=== PATIENT | male | born 1990 | race Caucasian/White ===

== ENCOUNTER 2024-11-22 12:14 | Outpatient (AMB) | payer OTHER, SELFPAY ==
--- NOTE | 2024-11-22 12:35 | MHC.OFFWIV ---
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 Patient Tobacco Use Status: Never used Tobacco Allergies No Known Allergies Allergy (Verified 11/22/24 12:42) Do you need a note to return to daycare/school/sports/work: No HPI HPI Comments History of Present Illness Details History - The patient is a 34-year-old male presenting with recurrent asthma exacerbations. - Symptoms began shortly after relocating to [place] from the [facility] one year ago. - He reports daily wheezing, primarily noted in the morning, improving as the day progresses. - Experiences mild dyspnea on exertion, with dry coughing but no nocturnal disturbances. - Suspects symptoms are exacerbated by local environmental allergens, given recent move to a high allergen area. - Past history of asthma treated with inhalers such as albuterol and Advair, discontinued due to side effects (thrush) over 15 years ago. - Current management with albuterol has been insufficient though inhaler may be old/; daily allergy medication offers partial relief. - Was unable to get an appointment with primary care physician for evaluation. Physical Exam General: Cooperative, healthy appearing, comfortable and no acute distress Orientation/consciousness: Patient oriented x3 Limitations: No limitations Head: Normal to inspection Ears: Hearing grossly normal bilaterally, external ears normal and TM's normal bilaterally Nose: Normal external nose present, Normal nares present and No nasal discharge present Face and sinus: Normal facial exam and Yes sinuses nontender Mouth: Normal oral and palatal mucosa present and moist mucous membranes Throat: Yes tonsils normal, Yes uvula midline. Posterior oropharynx erythema Eyes: Appearance normal, both eyes and all related structures Neck: Normal visual inspection Respiratory: Clear to auscultation bilaterally. Normal respiratory effort, able to speak in complete sentences, no respiratory distress, not tachypneic, no tripod positioning and no use of accessory muscles Cardiovascular: Regular rate and rhythm. Normal S1 and S2 Skin: No rashes or lesions noted Neuro: Patient oriented x3 Extremities: Normal to inspection and Yes no clubbing, cyanosis or edema PFSH Social History Patient Tobacco Use Status: Never used Tobacco Review of Systems Const All systems reviewed & are unremarkable except as noted in HPI and below Physical Exam Vital Signs: Last Vital Signs Pulse 66 11/22/24 12:37 BP 112/70 11/22/24 12:37 Pulse Ox 99 11/22/24 12:37 Oxygen Delivery Method Room Air 11/22/24 12:37 Assessment & Plan Assessment & Plan (1) Allergic rhinitis with mild asthma without status asthmaticus, with acute exacerbation: Code(s): J45.901 - Unspecified asthma with (acute) exacerbation Qualifiers: Asthma persistence: intermittent Qualified Code(s): J45.21 - Mild intermittent asthma with (acute) exacerbation Plan: VSS, pt well appearing and PE remarkable for cobblestoning. Management will focus on initiating an inhaled corticosteroid and long-acting beta-agonist combination therapy to address recurrent asthma exacerbations. Past treatment with just short-acting bronchodilators has been insufficient. Coordination with Dr. Armenta may be necessary for prior authorization of Advair or a similar medication. A new RX for a spacer and Albuterol has been sent for interim relief. Follow-up with the primary care provider will ensure ongoing control and adaptation of the regimen with possible pulmonary function testing. Environmental allergen control measures will be stressed as part of ongoing management, continuing daily allergy medication. Patient was informed and verbally consented to the use of an ambient scribe for clinic note documentation during this visit Medications: New fluticasone propion-salmeterol 45-21 mcg/actuation (Advair HFA) 2 puffs inhalation Q12H 12 grams 0RF albuterol sulfate 90 mcg/actuation 2 puffs inhalation Q6H PRN 8.5 grams 0RF shortness of breath or wheezing or cough inhalational spacing device (BreatheRite MDI Spacer) As directed 1 ea 0RF Coding Level of Care Code Est Pt Level 3 (67880) Diagnoses Allergic rhinitis with mild intermittent asthma without status asthmaticus, with acute exacerbation J45.21 Asthma persistence: intermittent
[2024-11-22 12:37] VITALS: BP 112/70; PULSE 66; O2SAT 99
--- OUTSIDE RECORDS SUMMARY | 2024-11-22 13:10 | XMS_ITS | Referral Summary ---
Author Organization [facility] Address [address] [place] [address] Care Team Providers Care Cath Laboratory Technician Name Role Phone Teresa Director Of Corporate Sponsorships, Rosa M LOVIGN Primary Care Provider Allergies Active Allergy Reactions Criticality Noted Date Comments Erythromycin Dermatitis 12/23/1989 MP RASH ON ERYTHROMYCIN Medications buPROPion XL (WELLBUTRIN XL) 300 mg tablet Take 300 mg by mouth every morning. Active albuterol (PROAIR HFA,VENTOLIN HFA) 90 mcg inhaler Inhale 2 puffs (180 mcg total) by mouth every 6 hours as needed for wheezing. Use with spacer. 18 g 7 Active cloNIDine (CATAPRES) 0.1 mg tablet Take 1 tablet twice a day for 7 days, then 1 tablet once a day for 7 days, then stop 21 tablet 7 Active Additional Information Patient taking differently: As needed, Take 1 tablet twice a day for 7 days, then 1 tablet once a day for 7 days, then stop, Reported on 11/24/2021 gabapentin (NEURONTIN) 300 mg capsule TAKE UP TO 7 CAPSULES DAILY 1 Active mirtazapine (REMERON) 15 mg tablet Take 15 mg by mouth nightly. 1 Active nicotine polacrilex (NICORETTE) [address] 1 PIECE (2 MG TOTAL) INSIDE CHEEK NEEDED FOR SMOKING CESSATION. 1 Active clindamycin (CLEOCIN T) 1 % lotionIndicatio ns:Acne vulgaris Apply to face daily after washing with benzoyl peroxide wash 60 mL 3 2 Active econazole nitrate 1% creamIndication s:Tinea corporis Apply to rash in groin BID until resolved. 85 g 3 3 Active Active Problems Problem Noted Date Diagnosed Date Other mixed anxiety disorders 06/18/2017 Asthma exacerbation 06/18/2017 LFT elevation 06/17/2017 Acute pancreatitis 06/16/2017 Assessment & Plan (06/17/2017 4:23 AM EST): 06/16/2017 Patient with history of alcohol usage and now presents with pancreatitis. Has epigastric pain that is now generalized and also has lipase >[address] showing pancreatitis. PLAN Lactated Ringer at 250cc/hr IV Dilaudid was not lasting more than 1 hour so eventually switched to Dilaudid CNA. NPO Gastroesophageal reflux disease without esophagi tis 06/16/2017 Assessment & Plan (06/17/2017 4:23 AM EST): continue IV pantoprazole for home PO omeprazole. Attention deficit hyperactiv ity disorder (ADHD), predominantly inattentive type 06/16/2017 Assessment & Plan (06/17/2017 4:23 AM EST): Holding home adderall Alcohol withdrawal syndrome without complication 06/16/2017 Assessment & Plan (06/17/2017 4:25 AM EST): Patient with some concern for alcohol withdrawal. He is very difficult to get a proper history from but finally admitted to having many drinks over the last few days. Will need to place on CIWA for possible withdrawal. PLAN CIWA Heart disease, congenital 1988 Murmur 1988 Immunizations Immunization Administration Dates Next Due Diphtheria, Tetanus Toxoids and Pertussis Vaccine 09/15/1989,1988,1988,1987 Haemophilus Influenzae Type B Vaccine, PRP-D Conjugate 09/15/1989 Influenza, Injectable, Quadr ivalent, Preservative Free 06/19/2017 Influenza, Unspecified 04/27/2012 Measles, Mumps, and Rubella Vaccine 04/06/1989 PPD Test 02/12/1989 Tetanus Toxoid, Reduced Diph theria Toxoid, and Acellular Pertussis Vaccine, Adsorbed 01/12/2013 Trivalent Poliovirus Vaccine , Live, Oral 09/15/1989,1988,1988 Social History Tobacco Use Types Packs/Day Years Used Date Smoking Tobacco: Former Cigarettes 0.5 4 Smokeless Tobacco: Former Tobacco Cessation:Counseling Given: No Alcohol Use Standard Drinks/Week Comments Yes 0 (1 standard drink = 0.6 oz pur e alcohol) Social drinker Sex and Gender Information Value Date Recorded Sex Assigned at Male Legal Sex Male 2:54 AM EST Gender Identity Male Sexual Orientation Straight 11/20/2020 9: 25 PM EDT Last Filed Vital Signs Vital Sign Reading Time Taken Comments Blood Pressure 123/78 01/22/2019 1:08 AM EDT Pulse 91 01/21/2019 8:07 PM EDT Temperature 36.9 ??C (98.4 ??F) 01/21/2019 8:07 PM ED T Respiratory Rate 20 01/21/2019 8:07 PM EDT Oxygen Saturation 98% 01/22/2019 1:10 AM EDT Inhaled Oxygen Concentration - - Weight 81.6 kg (180 lb) 01/21/2019 8:07 PM EDT Height 188 cm (6' 2 ) 01/21/2019 8:07 PM EDT Body Mass Index 23.11 01/21/2019 8:07 PM EDT Plan of Treatment Not on file Insurance HSNO/FREE CARE Advance Directives * Full Code (Latest Code Status on File) Date Activated Date Inactivated Comments 06/16/2017 5:08 AM 06/19/2017 1:24 PM Care Teams Cath Laboratory Technician Relationship Specialty Start Date End Date Rosa M Moore Np, [place] [facility] [place] [address] PCP - General Family Medicine 10/11/20
--- OUTSIDE RECORDS SUMMARY | 2024-11-22 13:10 | XMS_ITS | Clinical Summary ---
Author Organization [facility] Address [address] [place] [address] Care Team Providers Care Senior Systems Architect Name Role Phone Teresa Home Decorator, Rosa M LOVING Primary Care Provider Allergies Active Allergy Reactions [...] 1 hour so eventually switched to Dilaudid PRENATAL GENETIC COUNSELOR. NPO Gastroesophageal reflux disease without esophagi tis [...] Trivalent Poliovirus Vaccine , Live, Oral 09/15/1989,1988,1988 Family History Medical History Relation Name Comments Parkinsonism Maternal Grandfather Diabetes type II Mother's Brother Relation Name Status Comments Maternal Grandfather Mother's Brother Social History Tobacco Use Types Packs/Day Years [...] 01/21/2019 8:07 PM EDT Plan of Treatment Health Maintenance Due Date Last Done Comments HIV Screening 1988 Hepatitis C Screening 1988 Varicella Vaccines (1 of 2 - 13+ 2-dose series) 12/31/2000 Hepatitis B Vaccines (1 of 3 - 19+ 3-dose series) 12/31/2006 Pneumococcal Vaccine: Pediat alissa (0-5 Years) and At-Risk Patients (6-50 Years) (1 of 2 - PCV) 12/31/2006 DTaP,Tdap,and Td Vaccines (6 - Td or Tdap) 01/12/2023 01/12/2013, 09/15/1989, 1988, Additional history exists COVID-19 Vaccine (2023-2 5 season) 2024 Alcohol/Substance Use Screening 07/05/2024 Depression Screening and Follow-Up 07/05/2024 Social Drivers of Health Johana ual Screening 07/05/2024 Influenza Vaccine (Season Ended) 2025 06/19/20 17, 04/27/2012 RSV Vaccine (60+ years old a nd patients) (1 - 1-dose 75+ series) 12/31/2062 Insurance HSNO/FREE CARE Advance Directives * Full Code (Latest Code Status on File) Date Activated Date Inactivated Comments 06/16/2017 5:08 AM 06/19/2017 1:24 PM Care Teams Senior Systems Architect Relationship Specialty Start Date End Date Rosa M Moore Np, NP [facility] [place] [address] PCP - General Family Medicine 10/11/20
== END 2024-11-22 13:15 | disposition home or self-care (01) ==
PROVIDERS: Visit Provider Physician Assistant
DX: J45.21 Mild intermittent asthma with (acute) exacerbation (principal)

== ENCOUNTER → 2024-11-22 12:14 | Outpatient (BNVA) | payer OTHER, SELFPAY | PROVIDERS: Visit Provider Physician Assistant | DX: J45.21 Mild intermittent asthma with (acute) exacerbation (principal); Z79.899 Other long term (current) drug therapy | CPT/HCPCS: 99212 ==

== ENCOUNTER 2025-01-20 11:35 | Outpatient (AMB) | payer OTHER, SELFPAY ==
--- NOTE | 2025-01-20 11:36 | AM.OFFWIN_ITS ---
Intake Vital Signs 01/20/25 11:38 Height 6 ft 2 in Weight 194 lb BMI 24.9 BP 112/62 Blood Pressure Location Rt brachial Position Sitting Respiration 15 Pulse 88 Pulse Source Pulse Oximeter Temp 98 F Temp Source Oral Pulse Oximetry (%) 99 Oxygen Delivery Method Room Air Intake Visit Reasons: EP-Rt leg pain & discomfort, swollen Intake Note: Pt is here today c/o Rt leg pain swollen veins on top of foot swollen x3days: no injury noted Patient Tobacco Use Status: Never used Tobacco Allergies No Known Allergies Allergy (Verified 01/20/25 11:39) HPI HPI Comments History of Present Illness Details This is a 35-year-old male with a past medical history of asthma and anxiety presenting for evaluation of distended veins in his right lower extremity that he 1st noticed on Wednesday. Patient reports having a minimal and intermittent dull achy sensation on his lower medial right calf. Patient denies any injury or trauma however states that his veins in his lower right extremity remain distended. Patient denies any recent travel, fevers, chills, overt swelling in his right lower extremity, chest pain or shortness of breath. Patient's intake with his primary care physician is not until May 2025 and he is additionally requesting a refill of his asthma inhaler that he takes twice daily. Patient denies having any concerns with his asthma medication regimen. [facility] Social History Patient Tobacco Use Status: Never used Tobacco Review of Systems Const All systems reviewed & are unremarkable except as noted in HPI and below Denies chills, Denies fatigue and Denies fever(s) Card Reports no additional complaints and Denies dyspnea Resp Reports no additional complaints, Denies chest congestion, Denies cough, Denies dyspnea and Denies wheezing Skin/Breast Details: distended veins right lower extremity Neuro Reports no additional complaints Psych Reports no additional complaints Endo Denies fatigue Aller/Immun Denies wheezing Physical Exam Vital Signs: BMI result Body Mass Index 24.9 Const General: cooperative, healthy appearing, comfortable, no acute distress, well developed, alert, awake and Physically active Nutritional Appearance: average body habitus Orientation/consciousness: patient oriented x3 Limitations: no limitations Skin Other: No erythema, edema, ecchymosis or induration noted RLE Lesions: no lesions Rashes: no rashes Neuro General: patient oriented x3 Extrem Right lower extremity: full ROM and lower leg (veins in right foot and right medial distal lower extremity distended) Details: no edema; no erythema, no tenderness, no localized swelling and no unusual warmth; no cyanosis, no edema and joint enlargement noted Psych Appearance: grossly normal Mental Status: mental status grossly normal Insight: Good insight present (Psych) Judgement: Good judgement present (Psych) Assessment & Plan Assessment & Plan (1) Right leg pain: Comment: There is no evidence of cellulitis, muscle strain or claudication however a DVT can not be ruled out without ultrasound examination. Code(s): M79.604 - Pain in right leg Plan: Outpatient doppler venous US will be obtained; patient will go to the ED directly for any acute exacerbation of his symptoms prior to his outpatient ultrasound evaluation. (2) Asthma: Comment: No clinical concerns as related to asthma. Code(s): J45.909 - Unspecified asthma, uncomplicated Qualifiers: Asthma severity: unspecified severity Asthma persistence: unspecified Asthma complication type: unspecified Qualified Code(s): J45.909 - Unspecified asthma, uncomplicated Plan: Fluticasone/Solmeterol inhaler refilled for patient. Orders: Orders US venous duplex LE RT Today R60.0 - Localized edema Medications: New fluticasone propion-salmeterol 45-21 mcg/actuation 2 puffs inhalation BID 12 grams 3RF Coding Level of Care Code Est Pt Level 3 (60621) Diagnoses Right leg pain M79.604 Asthma, unspecified asthma severity, unspecified whether complicated, unspecified whether persistent J45.909 Asthma severity: unspecified severity Asthma persistence: unspecified Asthma complication type: unspecified Time Spent (min) 20
[2025-01-20 11:38] VITALS: BP 112/62; PULSE 88; RESP 15; TEMP 36.6; O2SAT 99; BMI 24.9
--- OUTSIDE RECORDS SUMMARY | 2025-01-20 11:38 | XMS_ITS | Referral Summary ---
Author Organization [facility] Address [address] [place] [address] Care Team Providers Care Oral And Maxillofacial Surgery Resident Name Role Phone Teresa Braiding Operator, Rosa M LOVING Primary Care Provider Allergies [...] 1 hour so eventually switched to Dilaudid NURSING ASSOCIATE. NPO Gastroesophageal reflux disease without esophagi tis [...] 91 01/21/2019 8:07 PM EDT Temperature 36.9 C (98.4 F) 01/21/2019 8:07 PM EDT Respiratory Rate 20 01/21/2019 8:07 PM EDT [...] 5:08 AM 06/19/2017 1:24 PM Care Teams Oral And Maxillofacial Surgery Resident Relationship Specialty Start Date End Date Rosa M Moore Np, NP [facility] [place] [address] PCP - General Family Medicine 10/11/20
== END 2025-01-20 12:13 | disposition home or self-care (01) ==
LOC: HO.HMCWIC 11:35
PROVIDERS: Visit Provider Physician Assistant
DX: M79.604 Pain in right leg (principal); J45.909 Unspecified asthma, uncomplicated

== ENCOUNTER → 2025-01-20 11:35 | Outpatient (BNVA) | payer OTHER, SELFPAY | PROVIDERS: Visit Provider Physician Assistant | DX: M79.604 Pain in right leg (principal); J45.909 Unspecified asthma, uncomplicated; R60.0 Localized edema | CPT/HCPCS: 99212 ==

== ENCOUNTER 2025-01-30 15:02 | Outpatient (REF) | payer OTHER, SELFPAY ==
--- NOTE | ~2025-01-30 | US_ITS ---
EXAMINATION: US TRIPLEX LOWER EXTREMITY, RIGHT CLINICAL INFORMATION: Right lower extremity pain COMPARISON: None available. TECHNIQUE: Color-flow triplex imaging with spectral analysis and compression Doppler were performed on the right lower extremity. FINDINGS: Respiratory variation, normal compression and augmented flow are noted throughout the right lower extremity. The visualized common femoral vein, superficial femoral vein, profunda femoral vein, popliteal vein and midcalf peroneal and posterior tibial venous segments show no evidence of deep venous thrombosis. US/US venous duplex LE RT IMPRESSION: No evidence of deep venous thrombosis involving the right lower extremity. Electronically signed by: Simone Mishra MD 01/30/2025 03:55 PM EDT
--- OUTSIDE RECORDS SUMMARY | 2025-01-30 15:56 | XMS_ITS | Referral Summary ---
Author Organization [facility] Address [address] [place] [address] Care Team Providers Care Panel Edge Sealer Name Role Phone Teresa Gastroenterology Nurse, Rosa M LOVING Primary Care Provider [phone] Allergies Active Allergy Reactions Criticality Noted Date [...] 1 hour so eventually switched to Dilaudid PEST CONTROL OPERATOR. NPO Gastroesophageal reflux disease without esophagi tis [...] 5:08 AM 06/19/2017 1:24 PM Care Teams Panel Edge Sealer Relationship Specialty Start Date End Date Rosa M Moore Np, NP [facility] [place] [address] PCP - General Family Medicine 10/11/20
== END 2025-01-30 15:03 | disposition home or self-care (01) ==
LOC: HO.US 15:02
PROVIDERS: PCP Family Medicine; Visit Provider Physician Assistant
DX: R60.0 Localized edema (principal)
CPT/HCPCS: 93971

== ENCOUNTER → 2025-01-30 15:09 | Outpatient (BNV) | payer OTHER, SELFPAY | PROVIDERS: PCP Family Medicine; Visit Provider Radiology Diagnostic Radiology | DX: M79.661 Pain in right lower leg (principal) | CPT/HCPCS: 93971 ==

== ENCOUNTER 2025-03-28 14:51 | Outpatient (AMB) | payer OTHER, SELFPAY ==
--- NOTE | 2025-03-28 14:57 | MHC.PC.OV ---
Vital Signs 03/28/25 15:06 Height 6 ft 2 in Weight 195 lb 8 oz BMI 25.1 BP 102/68 Blood Pressure Location Lt brachial Position Sitting Pulse 87 Pulse Source Pulse Oximeter Temp 97.8 F Temp Source Temporal Artery Scan Pulse Oximetry (%) 97 Oxygen Delivery Method Room Air Intake Visit Reasons: ORTHOTIST/PROSTHETIST Annual PE Intake Note: Dougie presents in the office today to establish care. Allergies No Known Allergies Allergy (Verified 03/28/25 15:01) Medication List - Last Reconciled 03/28/25 by Ventura Armenta MD albuterol sulfate 90 mcg/actuation 2 puffs inhalation Q6H PRN bupropion HCl SR 100 mg PO BID clonidine HCl mg PO BID dextroamphetamine sulfate ER 5 mg PO DAILY PRN fexofenadine (Pratima Allergy) 180 mg PO DAILY PRN fluticasone propion-salmeterol 45-21 mcg/actuation (Advair HFA) 2 puffs inhalation Q12H fluticasone propion-salmeterol 45-21 mcg/actuation 2 puffs inhalation BID gabapentin 1,600 mg PO inhalational spacing device (BreatheRite MDI Spacer) As directed Tobacco use date assessed: 03/28/25 Dental Screening Dental Screen Date: 03/28/25 Did you have a dental visit in the last 12 months?: Yes Did you have a dental problem in the last 6 months where you did not have access to dental care?: No Was dental information given to patient?: Patient has dentist HPI ORTHOTIST/PROSTHETIST Annual PE HPI Details New Patient? ?? Prior PCP:? Rosa M [facility] Last office visit/CPE:? 06/26 Acute issue(s):? Breatig problems ? Asthma vs COPD Has long Hx inhaled Vape & MJ ?? PMHx:? Asthma. Back Pain Knee pain. Anxiety and has therpist & PSY Dr Maradiaga. Hx ETOH w/ Acute Pancreatitis. Elevated Fasting BS SurgHx:? Scapholunate Lig Repair FHx:? Mom: Healthy. Dad: Colon Polyps, Skin CA. Brother: Polyps. SocHx:? Minimal Cigs but significant Vaping and MJ. EtOH Quit Jul 2019. Prior to that heavy. MJ None. No drugs HPI Comments History of Present Illness Details Documentation assistance for Ventura Armenta MD, was provided by Shubham Vásquez,? Registered Nurse Maternal Child on 03/28/2025 at 3:30 PM EST. I, Dr. Armenta, have read, observed, and verified documentation. ?? PFSH Medical History (Updated 03/28/25 @ 15:42 by Shubham Vásquez) Sinusitis Tear of scapholunate ligament Depression with anxiety Seizure Pancreatitis Family History (Updated 03/28/25 @ 15:12 by Heather Maxwell [facility]) Brother FH: mental illness Bipolar 1 disorder Substance abuse Alcoholism Father Depression Skin cancer Social History (Updated 03/28/25 @ 15:06 by Heather Maxwell CMA) Housing: Apartment Alcohol intake: former Comment: Sober 5 years Patient Tobacco Use Status: Never used Tobacco e-Cigarette/Vaping Use: Never Used Second Hand Smoke Exposure: No service: No Current occupational status: employed Current occupation: PA student Current occupational exposures/hazards: No Cognitive needs: No Hearing needs: No Vision needs: No Questionnaire PHQ-9 Over the last 2 weeks, how often have you been bothered by any of the following problems? 1. Little interest or pleasure in doing things: not at all 2. Feeling down, depressed, or hopeless: not at all 3. Trouble falling or staying asleep, or sleeping too much: several days 4. Feeling tired or having little energy: several days 5. Poor appetite or overeating: not at all 6. Feeling bad about yourself - or that you are a failure or have let yourself or your family down: not at all 7. Trouble concentrating on things, such as reading the newspaper or watching television: not at all 8. Moving or speaking so slowly that other people could have noticed. Or the opposite - being so fidgety or restless that you have been moving around a lot more than usual: not at all 9. Thoughts that you would be better off or of hurting yourself in some way: not at all Total score: 2 Depression Screening Interpretation: Negative Depression Screening Done: Yes 51662 - PHQ-9 Billing: Yes Source: Developed by Drs. Michel Mascorro, Nan Matthew, Checo Pedroza and colleagues, with an educational leyla from [employer]. Thrive Questionnaire Date Thrive assessed: 03/28/25 I am a: Patient What is your living situation today?: I have a steady place to live Within the past 12 months, did the food you bought not last and you didn't have the money to get more?: Never true Within the past 12 months, did you worry whether your food would run out before you got money to buy more?: Never true Do you have trouble paying for medicines?: No Do you have trouble getting transportation to medical appointments?: No Do you have trouble paying your heating and electricity bill?: No Do you have trouble taking care of your child, family member or friend?: No Do you have trouble with day-to-day activities such as bathing, preparing meals, shopping, managing finances, etc.?: No Are you currently unemployed and looking for a job?: No Are you interested in more education?: No Please select the resources that you would like help with: None Currently or been in a relationship where the following occur: No concerns reported THRIVE Score: 0 AUDIT C Alcohol Use Questionnaire (AUDIT-C) 1. How often do you have a drink containing alcohol?: Never 3. How often do you have six or more drinks on one occasion?: Never Total Score: 0 ALTHEA-7 AMB Questionnaire ALTHEA-7 Date ALTHEA - 7 assessed: 03/28/25 Feeling nervous, anxious, or on edge: 1 = Several days Not being able to stop or control worryin = Several days Worrying too much about different things: 1 = Several days Trouble relaxin = Several days Being so restless that it is hard to sit still: 1 = Several days Becoming easily annoyed or irritable: 1 = Several days Feeling afraid as if something awful might happen: 0 = Not at all Total ALTHEA-7 score (0-4 normal; 5-9 mild; 10-14 moderate; 15-21 severe): 6 Source: Developed by Drs. Michel Mascorro, Nan Matthew, Checo Pedroza and colleagues, with an educational leyla from [employer]. ALTHEA-7 Assessment Billing ALTHEA-7 Assessment Tool: ALTHEA-7 Assessment 94047 Review of Systems Const Denies chills, Denies fatigue, Denies fever(s), Denies headache(s) and Denies weakness ENT Denies dizziness and Denies headache(s) Card Denies chest pain, Denies lightheadedness, Denies dyspnea and Denies other (Palpitations) Resp Denies cough, Denies dyspnea, Denies wheezing and Denies other ( shortness of breath) Musc Denies numbness and Denies tingling Neuro Denies dizziness, Denies headache(s), Denies numbness, Denies tingling, Denies paresthesias and Denies weakness Psych Denies anxiety and Denies depression Endo Denies fatigue Aller/Immun Denies wheezing Physical exam (Primary Care) Vital Signs: Last Vital Signs Temp 97.8 F 03/28/25 15:06 Pulse 87 03/28/25 15:06 BP 102/68 03/28/25 15:06 Pulse Ox 97 03/28/25 15:06 Oxygen Delivery Method Room Air 03/28/25 15:06 BMI result Body Mass Index 25.1 Tobacco/Smoking Status: Tobacco use Status Tobacco use date assessed 03/28/25 03/28/25 15:06 Patient Tobacco Use Status Never used Tobacco 03/28/25 15:06 e-Cigarette/Vaping Use Never Used 03/28/25 15:06 PHQ-9: PHQ-9 Score PHQ-9: Total score 2 03/28/25 15:06 Depression Screening Interpretation: Negative Thrive Assessment: Date of Thrive Assessment Date Thrive assessed 03/28/25 03/28/25 15:00 Currently or been in a relationship where the following occur: No concerns reported Const General: no acute distress and well developed Nutritional Appearance: well nourished Orientation/consciousness: patient oriented x3 HENMT Head: Yes normocephalic and Yes atraumatic Eyes General: appearance normal, both eyes and all related structures Pupils: Equal, round and reactive pupils present EOM: EOMs intact bilaterally Resp Effort & Inspection: normal respiratory effort Auscultation: clear to auscultation bilaterally Cardio Rate: regular rate Rhythm: regular rhythm Heart sounds: S1 normal heart sound present, S2 normal heart sound present, no gallops, no murmurs and no rubs Neuro General: patient oriented x3 and gait normal Cranial nerves: Yes Equal, round and reactive pupils present Psych Affect: normal affect Coding Level of Care Code New Pt Level 4 (61658) Diagnoses Depression with anxiety F41.8 Difficulty breathing R06.89 History of smoking Z87.891 Elevated fasting glucose R73.01 Urinary hesitancy R39.11 History of alcohol use Z87.898 Family history of colonic polyps Z83.719 Screening for colon cancer Z12.11 Laboratory exam ordered as part of routine general medical examination Z00.00 Additional Codes ALTHEA-7 Assessment Billing - ALTHEA-7 Assessment Tool: ALTHEA-7 Assessment 35932 ([id number]) PHQ-9 - 01278 - PHQ-9 Billing: Yes ([id number]) Assessment & Plan Assessment & Plan (1) Depression with anxiety: Code(s): F41.8 - Other specified anxiety disorders Category: Medical Plan: Patient has a psychiatrist/psych med provider Currently stable Continue current medications Follow-up with your psych med provider (2) Difficulty breathing: Code(s): R06.89 - Other abnormalities of breathing Category: Medical Plan: Ongoing shortness of breath with reactive airways and patient uses albuterol as well as a combo Laba/steroid Will check pulmonary function testing Will follow-up with patient and adjust medications or consider referral to pulmonology (3) History of smoking: Code(s): Z87.891 - Personal history of nicotine dependence Category: Social Hx Plan: History of vaping and smoking MJ Some cigarettes - distant history No longer using the above but does have shortness of breath As above checking pulmonary function testing and will continue albuterol and salmeterol/fluticasone (4) Elevated fasting glucose: Code(s): R73.01 - Impaired fasting glucose Category: Medical Plan: History of pancreatitis and has elevated fasting blood sugars Checking A1c test (5) Urinary hesitancy: Code(s): R39.11 - Hesitancy of micturition Category: Medical Plan: Checking UA Hydrate well Take time to empty well prior to bed Will continue to monitor May need referral to urology (6) History of alcohol use: Code(s): Z87.898 - Personal history of other specified conditions Category: Medical Plan: Patient quit drinking in 2019 (7) Family history of colonic polyps: Code(s): Z83.719 - Family history of colon polyps, unspecified Category: Medical Plan: Will refer him to Gastroenterology (8) Screening for colon cancer: Code(s): Z12.11 - Encounter for screening for malignant neoplasm of colon Category: Medical Plan: As above, referred to Gastroenterology (9) Laboratory exam ordered as part of routine general medical examination: Code(s): Z00.00 - Encounter for general adult medical examination without abnormal findings Category: Medical Plan: Check labs Orders: Orders Comprehensive [place]. Panel Fast Today Z00.00 - Encounter for general adult medical examination without abnormal findings Microalbumin, Random (w Creat) Today I10 - Essential (primary) hypertension Lipid Panel Today Z00.00 - Encounter for general adult medical examination without abnormal findings T Spot TB Today Z11.1 - Encounter for screening for respiratory tuberculosis Complete Blood Count Auto Diff Today Z00.00 - Encounter for general adult medical examination without abnormal findings TSH reflex Free T4 Today Z00.00 - Encounter for general adult medical examination without abnormal findings UA CC w/rflx Micro + Cult Today Z00.00 - Encounter for general adult medical examination without abnormal findings Vitamin B12 and Folate Today E53.8 - Deficiency of other specified B group vitamins Hepatitis B,C Profile Today Z11.3 - Encounter for screening for infections with a predominantly sexual mode of transmission Hemoglobin A1c Today R73.01 - Impaired fasting glucose PFT pulmonary function test Today R06.02 - Shortness of breath Referrals Gastroenterology Referral Z12.11 - Encounter for screening for malignant neoplasm of colon, Z83.719 - Family history of colon polyps, unspecified
[2025-03-28 15:06] VITALS: BP 102/68; PULSE 87; TEMP 36.6; O2SAT 97; BMI 25.1
--- OUTSIDE RECORDS SUMMARY | 2025-03-28 17:22 | XMS_ITS | Clinical Summary ---
Author Organization [facility] Address [address] [place] [address] Care Team Providers Care Quill Picking Machine Operator Name Role Phone Teresa Exhibit Specialist, Rosa M LOVING Primary Care Provider [phone] Allergies Active Allergy Reactions Criticality Noted Date [...] 1 hour so eventually switched to Dilaudid REFRIGERATION INSTALLER. NPO Gastroesophageal reflux disease without esophagi tis [...] 01/12/2023 01/12/2013, 09/15/1989, 1988, Additional history exists Alcohol/Substance Use Screening 07/05/2024 Depression Screening and Follow-Up 07/05/2024 Social Drivers of Health Johana ual Screening 07/05/2024 COVID-19 Vaccine (1 - 2023-2 5 season) 2025 Influenza Vaccine (#1) 2025 06/19/2017, 2011 RSV Vaccine (60+ years old a nd patients) (1 - 1-dose 75+ series) 12/31/2062 Insurance HSNO/FREE CARE Advance Directives * Full Code (Latest Code Status on File) Date Activated Date Inactivated Comments 06/16/2017 5:08 AM 06/19/2017 1:24 PM Care Teams Quill Picking Machine Operator Relationship Specialty Start Date End Date Rosa M Moore Np, NP [address] [place] [address] PCP - General Family Medicine 10/11/20
== END 2025-03-28 15:38 | disposition home or self-care (01) ==
LOC: HO.HMCFM 14:52
PROVIDERS: PCP Family Medicine; Visit Provider Family Medicine
DX: F41.8 Other specified anxiety disorders (principal); R06.89 Other abnormalities of breathing; Z87.891 Personal history of nicotine dependence; R73.01 Impaired fasting glucose; R39.11 Hesitancy of micturition; Z87.898 Personal history of other specified conditions; Z83.719 Family history of colon polyps, unspecified; Z12.11 Encounter for screening for malignant neoplasm of colon; Z00.00 Encounter for general adult medical examination without abnormal findings

== ENCOUNTER → 2025-03-28 14:51 | Outpatient (BNVA) | payer OTHER, SELFPAY | PROVIDERS: Visit Provider Family Medicine | DX: Z00.00 Encounter for general adult medical examination without abnormal findings (principal); F41.8 Other specified anxiety disorders; R06.89 Other abnormalities of breathing; R73.01 Impaired fasting glucose; R39.11 Hesitancy of micturition; Z87.898 Personal history of other specified conditions; Z83.719 Family history of colon polyps, unspecified; Z87.891 Personal history of nicotine dependence; Z13.31 Encounter for screening for depression; Z13.39 Encounter for screening examination for other mental health and behavioral disorders | CPT/HCPCS: 96127; 99202 ==

== ENCOUNTER 2025-04-04 08:06 | Outpatient (REF) | payer OTHER, SELFPAY ==
--- OUTSIDE RECORDS SUMMARY | 2025-04-04 08:18 | XMS_ITS | Clinical Summary ---
Author Organization [facility] Address [address] [place] [address] Care Team Providers Care Relocation Specialist Name Role Phone Teresa Teacher Public Health, Rosa M LOVING Primary Care Provider Allergies [...] 1 hour so eventually switched to Dilaudid DEBEAKER. NPO Gastroesophageal reflux disease without esophagi tis [...] 5:08 AM 06/19/2017 1:24 PM Care Teams Relocation Specialist Relationship Specialty Start Date End Date Rosa M Moore Np, NP [address] [place] [address] PCP - General Family Medicine 10/11/20
[2025-04-04 11:22] LABS: MANUAL DIFF FLAG NO
[2025-04-04 11:26] LABS: Appearance Urine Clear; Glucose Urine UA Negative (Negative); PH 7.0 (5.0-9.0); Specific Gravity - Urine <= 1.005 (1.005-1.025)
[2025-04-04 11:29] LABS: Hematocrit 41.9 % (42.0-52.0); Hemoglobin 14.0 g/dl (14.0-18.0); Imm Gran Abs Auto 0.01 X10*3/uL (0.00-0.03); Imm Gran Pct Auto 0.2 % (0.0-0.4); Lymphocytes Absolute Auto 1.5 X10*3/uL (1.2-4.9); Mean Corpuscular HGB Conc 33.4 g/dl (31.0-36.0); Mean Corpuscular Hemoglobin 29.7 pg (27.0-33.0); Mean Corpuscular Volume 88.8 fL (80.0-98.0); NRBC Abs Auto 0.000 X10*3/uL (0.0-0.012); NRBC Pct Auto 0.0 /100WBC (0.0-0.2); Platelet Count 244 X10*3/uL (160-400); Red Blood Count 4.72 X10*6/uL (4.60-5.80); White Blood Count 4.8 X10*3/uL (4.8-10.8)
[2025-04-04 11:49] LABS: Alanine Aminotransferase 51 U/L (0-40); Albumin Level 4.7 g/dL (3.5-5.0); Alkaline Phosphatase 60 U/L (39-117); Anion Gap 10 (12-20); Aspartate Amino Transferase 32 U/L (5-37); Blood Urea Nitrogen 15 mg/dL (9-16); Calcium 9.4 mg/dL (8.4-10.2); Carbon Dioxide 32 mmol/L (22-29); Chloride 103 mmol/L (96-108); Cholesterol 148 mg/dL (<200); Estimated Glomerular Filt Rate > 60; HDL Cholesterol 61 mg/dL (>40); Potassium 3.7 mmol/L (3.3-5.1); Sodium 141 mmol/L (135-145); Total Protein 7.3 g/dL (6.5-8.0); Triglycerides 56 mg/dL (<150)
[2025-04-04 12:09] LABS: HBS Num1 43.53 mIU/mL (0-7.99); HBc Num1 0.10 S/CO (0.00-0.79); HBsAGNum1 0.30 S/CO (0.00-0.99); Hepatitis B Surface Antigen Negative (Negative); ~HepC Num1 0.08 S/CO (0.00-0.79); ~Hepatitis B Surface Antibody REACTIVE (Nonreactive); ~Hepatitis C Antibody Nonreactive (Nonreactive)
[2025-04-04 12:28] LABS: Folate 6.7 ng/mL (> or = 4.0); Vitamin B12 422 pg/mL (200-900)
[2025-04-07 11:38] LABS: TS Negative Control Passed; TS Panel A 0; TS Panel B 0; TS Positive Control Passed; TSpotTB Negative (Negative)
== END 2025-04-04 08:07 | disposition home or self-care (01) ==
LOC: HO.WFDLDS 08:06
PROVIDERS: Visit Provider Family Medicine
DX: Z00.00 Encounter for general adult medical examination without abnormal findings (principal); Z11.3 Encounter for screening for infections with a predominantly sexual mode of transmission; Z11.59 Encounter for screening for other viral diseases; Z11.1 Encounter for screening for respiratory tuberculosis; I10 Essential (primary) hypertension; E53.8 Deficiency of other specified B group vitamins; R73.01 Impaired fasting glucose
CPT/HCPCS: 36415; 80053; 80061; 81003; 82043; 82570; 82607; 82746; 83036; 84443; 85025; 86481; 86704; 86706; 86803; 87340

== ENCOUNTER → 2025-04-11 16:31 | Outpatient (AMB) | payer OTHER, SELFPAY ==
--- NOTE | 2025-04-11 16:28 | MHC.PC.OV ---
Intake Visit Reasons: lab results Intake Note: patient here for Telehealth follow up for lab review Client Relationship Consultant Required: No Allergies No Known Allergies Allergy (Verified 04/11/25 16:29) Medication List - Last Reconciled 04/11/25 by Ventura Armenta MD albuterol sulfate 90 mcg/actuation 2 puffs inhalation Q6H PRN bupropion HCl SR 100 mg PO BID clonidine HCl mg PO BID dextroamphetamine sulfate ER 5 mg PO DAILY PRN fexofenadine (Pratima Allergy) 180 mg PO DAILY PRN fluticasone propion-salmeterol 45-21 mcg/actuation (Advair HFA) 2 puffs inhalation Q12H fluticasone propion-salmeterol 45-21 mcg/actuation 2 puffs inhalation BID gabapentin 1,600 mg PO inhalational spacing device (BreatheRite MDI Spacer) As directed Tobacco use date assessed: 04/11/25 Dental Screening Dental Screen Date: 04/11/25 Did you have a dental visit in the last 12 months?: Yes Did you have a dental problem in the last 6 months where you did not have access to dental care?: No Was dental information given to patient?: Patient has dentist HPI lab results HPI Details 35 y/o male presents to f/u PFT for shortness of breath, labs. Labs drawn 04/04/25. Reviewed labs with pt. Borderline anemia. A1c 6.3%. Elevated ALT of 51. PFT scheduled for May. Pt does note breathing seems to be getting worse. Has been taking advair and has been using albuterol as needed. He feels advair is helping. Triglycerides 56. TC 148. LDL 76. HDL 61. PFSH Medical History (Updated 04/11/25 @ 17:05 by Shubham Vásquez) Sinusitis Tear of scapholunate ligament Depression with anxiety Seizure Pancreatitis Family History (Updated 03/28/25 @ 15:12 by Heather Maxwell CMA) Brother FH: mental illness Bipolar 1 disorder Substance abuse Alcoholism Father Depression Skin cancer Social History (Updated 03/28/25 @ 15:06 by Heather Maxwell CMA) Housing: Apartment Alcohol intake: former Comment: Sober 5 years Patient Tobacco Use Status: Never used Tobacco e-Cigarette/Vaping Use: Never Used Second Hand Smoke Exposure: No service: No Current occupational status: employed Current occupation: PA student Current occupational exposures/hazards: No Cognitive needs: No Hearing needs: No Vision needs: No Questionnaire Thrive Questionnaire Date Thrive assessed: 03/21/25 I am a: Patient What is your living situation today?: I have a steady place to live Within the past 12 months, did the food you bought not last and you didn't have the money to get more?: Never true Within the past 12 months, did you worry whether your food would run out before you got money to buy more?: Never true Do you have trouble paying for medicines?: No Do you have trouble getting transportation to medical appointments?: No Do you have trouble paying your heating and electricity bill?: No Do you have trouble taking care of your child, family member or friend?: No Do you have trouble with day-to-day activities such as bathing, preparing meals, shopping, managing finances, etc.?: No Are you currently unemployed and looking for a job?: No Are you interested in more education?: No Please select the resources that you would like help with: None Currently or been in a relationship where the following occur: No concerns reported THRIVE Score: 0 AUDIT C Alcohol Use Questionnaire (AUDIT-C) 3. How often do you have six or more drinks on one occasion?: Never Total Score: 0 ALTHEA-7 AMB Questionnaire ALTHEA-7 Date ALTHEA - 7 assessed: 03/28/25 Source: Developed by Drs. Michel Mascorro, Nan Matthew, Checo Pedroza and colleagues, with an educational leyla from [employer]. Physical exam (Primary Care) Tobacco/Smoking Status: Tobacco use Status Tobacco use date assessed 04/11/25 04/11/25 16:31 Patient Tobacco Use Status Never used Tobacco 04/11/25 16:31 e-Cigarette/Vaping Use Never Used 04/11/25 16:31 Thrive Assessment: Date of Thrive Assessment Date Thrive assessed 03/21/25 04/11/25 16:31 Currently or been in a relationship where the following occur: No concerns reported Telehealth Telehealth Telehealth Platform: Telephone Location of provider rendering services: practice address Location of patient: address on file Patient Identification confirmed using: Name, : Yes Telehealth method: voice only Patient verbally consented to treatment: Yes Patient verbally consented to billing insurance company: Yes Patient informed of any privacy concerns related to visit: Yes Coding Level of Care Code Tele Est Pt Level 2 (42100) Diagnoses Pre-diabetes R73.03 Borderline anemia D64.9 SOB (shortness of breath) R06.02 Elevated ALT measurement R74.01 Screening for tuberculosis Z11.1 Asthma, unspecified asthma severity, unspecified whether complicated, unspecified whether persistent J45.909 Asthma complication type: unspecified Asthma persistence: unspecified Asthma severity: unspecified severity Assessment & Plan Assessment & Plan (1) Pre-diabetes: Code(s): R73.03 - Prediabetes Category: Medical Plan: A1c 6.3%. Pre diabetes History of pancreatitis Work on a diet low in sugars and starches Will continue to monitor (2) Borderline anemia: Code(s): D64.9 - Anemia, unspecified Category: Medical Plan: Will monitor (3) SOB (shortness of breath): Code(s): R06.02 - Shortness of breath Category: Medical Plan: Patient has pulmonary function testing scheduled for May He is taking Advair and using albuterol as needed He feels that the Advair is helping Will increase his dose today (4) Elevated ALT measurement: Code(s): R74.01 - Elevation of levels of liver transaminase levels Category: Medical Plan: Mild ALT elevation Will repeat this (5) Screening for tuberculosis: Code(s): Z11.1 - Encounter for screening for respiratory tuberculosis Category: Medical Plan: Negative (6) Asthma: Code(s): J45.909 - Unspecified asthma, uncomplicated Category: Medical Qualifiers: Asthma complication type: unspecified Asthma persistence: unspecified Asthma severity: unspecified severity Qualified Code(s): J45.909 - Unspecified asthma, uncomplicated Plan: Continue albuterol and Advair as prescribed He still notes significant symptoms though he says that the Advair is helping Increasing his dose Will follow-up with him after pulmonary function testing Orders: Orders Complete Blood Count Auto Diff Today Z00.00 - Encounter for general adult medical examination without abnormal findings Comprehensive [place]. Panel Fast Today Z00.00 - Encounter for general adult medical examination without abnormal findings Lipid Panel Today Z00.00 - Encounter for general adult medical examination without abnormal findings Medications: New fluticasone propion-salmeterol 115-21 mcg/actuation (Advair HFA) 2 puffs inhalation Q12H 12 grams 3RF 30 days
== END ==
LOC: HO.HMCFM 16:31
PROVIDERS: PCP Family Medicine; Visit Provider Family Medicine
DX: R73.03 Prediabetes (principal); D64.9 Anemia, unspecified; R06.02 Shortness of breath; R74.01 Elevation of levels of liver transaminase levels; Z11.1 Encounter for screening for respiratory tuberculosis; J45.909 Unspecified asthma, uncomplicated

== ENCOUNTER 2025-05-29 14:59 | Outpatient (REF) | payer OTHER, SELFPAY ==
--- NOTE | 2025-05-29 15:06 | PFT_ITS ---
Flows: FEV1: 87 % of predicted at 3.99 L FVC: 103 % of predicted at 5.86 L FEV1/FVC: 68 % Bronchodilator response: Absent Volumes: Total lung capacity: 97 % of predicted at 7.40 L Residual volume: 91 % of predicted at 1.54 L Slow vital capacity: 98 % of predicted at 5.86 L Expiratory reserve volume: 99 % of predicted at 1.78 L Diffusion capacity: Normal Impression: Mild obstructive ventilatory defect with no bronchodilator response. MTDD
[2025-05-29 15:46] VITALS: PULSE 83; O2SAT 99
--- OUTSIDE RECORDS SUMMARY | 2025-05-29 18:43 | XMS_ITS | Clinical Summary ---
Author Organization [facility] Address [address] [place] [address] Care Team Providers Care Remote Control Mirror Installer Name Role Phone Teresa Second Language Tutor, Rosa M LOVING Primary Care Provider [phone] Allergies Active Allergy Reactions Criticality Noted Date [...] 1 hour so eventually switched to Dilaudid BELLMAN DRIVER. NPO Gastroesophageal reflux disease without esophagi tis [...] and Follow-Up 07/05/2024 Social Drivers of Health Ojhana ual Screening 07/05/2024 Influenza Vaccine (#1) 2025 06/19/2017, 2011 COVID-19 Vaccine (1 - 2025-2 6 season) 2025 Insurance HSNO/FREE CARE Advance Directives * Full Code (Latest Code Status on File) Date Activated Date Inactivated Comments 06/16/2017 5:08 AM 06/19/2017 1:24 PM Care Teams Remote Control Mirror Installer Relationship Specialty Start Date End Date Rosa M Moore Np, NP [address] [place] [address] PCP - General Family Medicine 10/11/20
== END 2025-05-29 15:00 | disposition home or self-care (01) ==
LOC: HO.RESP 14:59
PROVIDERS: PCP Family Medicine; Visit Provider Family Medicine
DX: R06.02 Shortness of breath (principal)
CPT/HCPCS: 94060; 94640; 94727; 94729

== ENCOUNTER → 2025-05-29 15:06 | Outpatient (BNV) | payer OTHER, SELFPAY | PROVIDERS: PCP Family Medicine; Visit Provider Internal Medicine Pulmonary Disease | DX: J98.4 Other disorders of lung (principal) | CPT/HCPCS: 94060; 94727; 94729 ==

== ENCOUNTER 2025-06-25 14:11 | Outpatient (REF) | payer OTHER, SELFPAY ==
--- OUTSIDE RECORDS SUMMARY | 2025-06-25 17:39 | XMS_ITS | Clinical Summary ---
Author Organization [facility] Address [address] [place] [address] Care Team Providers Care Toe Sewer Name Role Phone Teresa Tool Grinder, Rosa M LOVING Primary Care Provider Allergies [...] 1 hour so eventually switched to Dilaudid BARISTA. NPO Gastroesophageal reflux disease without esophagi tis [...] Health Johana ual Screening 07/05/2024 Influenza Vaccine (#1) 2025 06/19/2017, 2011 COVID-19 Vaccine (1 - 2025-2 6 season) 2025 Insurance HSNO/FREE CARE Advance Directives * Full Code (Latest Code Status on File) Date Activated Date Inactivated Comments 06/16/2017 5:08 AM 06/19/2017 1:24 PM Care Teams Toe Sewer Relationship Specialty Start Date End Date Rosa M Moore Np, NP [address] [place] [address] PCP - General Family Medicine 10/11/20
[2025-06-25 18:18] LABS: MANUAL DIFF FLAG NO
[2025-06-25 18:22] LABS: Hematocrit 41.9 % (42.0-52.0); Hemoglobin 13.9 g/dl (14.0-18.0); Imm Gran Abs Auto 0.01 X10*3/uL (0.00-0.03); Imm Gran Pct Auto 0.2 % (0.0-0.4); Lymphocytes Absolute Auto 0.8 X10*3/uL (1.2-4.9); Mean Corpuscular HGB Conc 33.2 g/dl (31.0-36.0); Mean Corpuscular Hemoglobin 29.9 pg (27.0-33.0); Mean Corpuscular Volume 90.1 fL (80.0-98.0); NRBC Abs Auto 0.000 X10*3/uL (0.0-0.012); NRBC Pct Auto 0.0 /100WBC (0.0-0.2); Platelet Count 192 X10*3/uL (160-400); Red Blood Count 4.65 X10*6/uL (4.60-5.80); White Blood Count 6.1 X10*3/uL (4.8-10.8)
[2025-06-25 18:41] LABS: Alanine Aminotransferase 42 U/L (0-40); Albumin Level 4.6 g/dL (3.5-5.0); Alkaline Phosphatase 61 U/L (39-117); Anion Gap 14 (12-20); Aspartate Amino Transferase 43 U/L (5-37); Blood Urea Nitrogen 15 mg/dL (9-16); Calcium 9.4 mg/dL (8.4-10.2); Carbon Dioxide 28 mmol/L (22-29); Chloride 103 mmol/L (96-108); Cholesterol 147 mg/dL (<200); Estimated Glomerular Filt Rate > 60; HDL Cholesterol 64 mg/dL (>40); Potassium 4.8 mmol/L (3.3-5.1); Sodium 140 mmol/L (135-145); Total Protein 6.9 g/dL (6.5-8.0); Triglycerides 75 mg/dL (<150)
== END 2025-06-25 14:12 | disposition home or self-care (01) ==
LOC: HO.WFDLDS 14:11
PROVIDERS: Visit Provider Family Medicine
DX: Z00.00 Encounter for general adult medical examination without abnormal findings (principal)
CPT/HCPCS: 36415; 80053; 80061; 85025